=== PATIENT | male | born 1950 | race Caucasian/White ===

== ENCOUNTER → 2017-02-25 | Outpatient (CLI) | payer MEDICARE, OTHER ==
[2005-11-01 12:15] VITALS: TEMP 97.6
[~2017-02-25] MED LIST: CELEXA; LISINOPRIL10 MG PO
== END ==
LOC: COL.RAD 08:58
DX: Z13.6 Encounter for screening for cardiovascular disorders (principal)

== ENCOUNTER 2020-03-29 19:04 | Emergency (ER) | payer MEDICARE, OTHER ==
[~2020-03-29] VITALS: Ht 180.3 cm; Wt 90.9 kg
[2020-03-29 19:16] VITALS: BP 138/73; TEMP 97.9
[2020-03-29 20:16] LABS: COLLECTION METHOD CATHETER
[2020-03-29 20:22] LABS: MUCOUS Present /lpf; PH 6 (5-8); SQUAMOUS EPITHELIAL None Seen /hpf; URINE APPEARANCE Clear; URINE BACTERIA None Seen /hpf; URINE BILIRUBIN Negative (NEGATIVE); URINE BLOOD Negative (NEGATIVE); URINE COLOR Yellow; URINE GLUCOSE Negative (NEGATIVE); URINE KETONE Negative (NEGATIVE); URINE LEUKOCYTE ESTERASE Negative (NEGATIVE); URINE NITRATE Negative (NEGATIVE); URINE PROTEIN(semi-quant) Negative (NEGATIVE); URINE UROBILINOGEN Negative (NEGATIVE)
[2020-03-29] MEDS ORDERED: TOPROL XL 50MG50 MG PO (20:32)
[2020-03-29] MEDS ORDERED: CELEXA40 MG PO (20:32)
[2020-03-29] MEDS ORDERED: PRINIVIL40 MG PO (20:32)
[2020-03-29] MEDS ORDERED: FLOMAX 0.40.4 MG/CAP PO (21:19)
[2020-03-29] MEDS ORDERED: MACROBID 1100 MG/CAP PO (21:19)
[2020-03-29 21:40] VITALS: PULSE 70
== END 2020-03-29 21:43 | disposition home or self-care (01) ==
LOC: COL.ER 19:04
PROVIDERS: Emergency Medicine
DX: K59.00 Constipation, unspecified (principal); R33.9 Retention of urine, unspecified; I10 Essential (primary) hypertension; E78.00 Pure hypercholesterolemia, unspecified